=== PATIENT | male | born 1945 | race Caucasian/White ===

== ENCOUNTER 2021-08-14 12:08 | Emergency (ER) | payer OTHER ==
[~2021-08-14] VITALS: Ht 175.3 cm; Wt 74.4 kg
[2021-08-14] MEDS ORDERED: CARVEDILOL12.5 M1 (12:23)
[2021-08-14] MEDS ORDERED: EFFEXOR XR150 MG PO (12:24)
[2021-08-14] MEDS ORDERED: DEPAKOTE ER250 MG PO (12:24)
[2021-08-14] MEDS ORDERED: COZAAR50 MG PO (12:24)
[2021-08-14] MEDS ORDERED: LASIX20 MG PO (12:25)
[2021-08-14] MEDS ORDERED: TAMS0.4C PO (12:25)
[2021-08-14] MEDS ORDERED: GLUMETZA500 MG PO (12:25)
[2021-08-14] MEDS ORDERED: GLIMEPIRIDE2 MG PO (12:26)
[2021-08-14] MEDS ORDERED: ATORVASTATIN CA40 MG PO (12:26)
[2021-08-14] MEDS ORDERED: ADULT LOW DOSE81 M1 PO (12:26)
[2021-08-14] MEDS ORDERED: ATIVAN1 M1 PO (12:27)
== END 2021-08-15 | disposition home or self-care (01) ==
LOC: ER 12:08
DX: K86.2 Cyst of pancreas (principal); K80.20 Calculus of gallbladder without cholecystitis without obstruction; R18.8 Other ascites; I70.90 Unspecified atherosclerosis; J90 Pleural effusion, not elsewhere classified; Z87.891 Personal history of nicotine dependence; I10 Essential (primary) hypertension; E11.9 Type 2 diabetes mellitus without complications; Z79.84 Long term (current) use of oral hypoglycemic drugs